=== PATIENT | male | born 1990 | race Caucasian/White ===

== ENCOUNTER 2019-10-05 06:41 | Emergency (ER) | payer BC ==
[2019-10-05 06:48] VITALS: TEMP 97.5
[2019-10-05] MEDS ORDERED: KETOROLAC 30 MG/ML 1 ML VIAL IVP STA (06:55)
[2019-10-05] MEDS ORDERED: MORPHINE SULFATE 4 MG/ML SYRINGE IV STA (06:55)
[2019-10-05] MEDS ORDERED: SODIUM CHLORIDE 0.9% 1,000 ML IV STA ×2 (06:55)
[2019-10-05] MEDS ORDERED: ONDANSETRON 4 MG/2 ML VIAL IVP STA (06:55)
--- NOTE | 2019-10-05 06:56 | ED ---
Abdominal Pain HPI - General Chief Complaint: Abdominal Pain Stated Complaint: Abdominal pain Time Seen by Provider: 10/05/19 06:50 Source: patient, RN notes reviewed, old records reviewed Mode of arrival: wheelchair Limitations: no limitations - History of Present Illness Initial Comments: 29-year-old male presents today for evaluation for onset of right-sided abdominal pain sudden onset at 6 AM. Patient also reports she's had some minor dysuria over the past few days. He reports he's noticed that his urine is darker. He denies any significant impact pain. He reports it's more towards the right lower quadrant. Patient states that he feels nauseous. He denies any surgical history. - Related Data Previous Rx's Medication Instructions Recorded Cephalexin [Keflex] 500 mg PO Q8HR #21 cap 10/05/19 Ciprofloxacin HCl [Cipro] 500 mg PO BID 3 Days #6 tab 10/05/19 HYDROcodone/APAP 5-325MG [Solomon 1 tab PO Q6HR PRN 3 Days #12 tab 10/05/19 5-325] Ketorolac [Toradol] 10 mg PO Q6HR #12 tab 10/05/19 Ondansetron [Zofran ODT] 4 mg PO Q8HR PRN #12 tab 10/05/19 Tamsulosin [Flomax] 0.4 mg PO DAILY #7 cap 10/05/19 Allergies Allergy/AdvReac Type Severity Reaction Status Date / Time Sulfa (Sulfonamide Allergy Swelling Verified 10/05/19 06:47 Antibiotics) Review of Systems ROS Statement: Those systems with pertinent positive or pertinent negative responses have been documented in the HPI. ROS Other: All systems not noted in ROS Statement are negative. Past Medical History Past Medical History: No Reported History History of Any Multi-Drug Resistant Organisms: None Reported Past Surgical History: Tonsillectomy Past Psychological History: No Psychological Hx Reported Smoking Status: Current every day smoker Past Alcohol Use History: Occasional Past Drug Use History: Marijuana General Exam - General Exam Comments Initial Comments: 29-year-old male present by her discomfort. Limitations: no limitations General appearance: alert, in no apparent distress Head exam: Present: atraumatic, normocephalic, normal inspection Eye exam: Present: normal appearance, PERRL, EOMI. Absent: scleral icterus, conjunctival injection, periorbital swelling ENT exam: Present: normal exam, mucous membranes moist Neck exam: Present: normal inspection. Absent: tenderness, meningismus, lymphadenopathy Respiratory exam: Present: normal lung sounds bilaterally. Absent: respiratory distress, wheezes, rales, rhonchi, stridor Cardiovascular Exam: Present: regular rate, normal rhythm, normal heart sounds. Absent: systolic murmur, diastolic murmur, rubs, gallop, clicks GI/Abdominal exam: Present: soft, tenderness (RLQ tenderness), normal bowel sounds. Absent: distended, guarding, rebound, rigid Extremities exam: Present: normal inspection, full ROM, normal capillary refill. Absent: tenderness, pedal edema, joint swelling, calf tenderness Back exam: Present: normal inspection Neurological exam: Present: alert, oriented X3, CN II-XII intact Psychiatric exam: Present: normal affect, normal mood Skin exam: Present: warm, dry, intact, normal color. Absent: rash Course Vital Signs 10/05/19 10/05/19 06:44 08:00 Temperature 97.5 F L Pulse Rate 85 74 Respiratory 16 20 Rate Blood Pressure 130/75 125/70 O2 Sat by Pulse 100 97 Oximetry Medical Decision Making - Medical Decision Making 29-year-old male presents today for sudden onset of right-sided lower abdominal pain also with this for the past 2 days. Patient's urinalysis is significant for hematuria, there was bacteria. Urine culture be completed. Patient given 1 g Rocephin IV push. Patient labwork, CBC and CMP are unremarkable. Computed tomography scan of pelvis was completed without contrast. Evidence of a 3 mm UVJ stone. Patient was given Flomax. Discussed Patient needs to rest remain hydrated and he should pass a kidney stone without any difficulty. Discussed Patient follow-up with his primary care doctor as well as urology. Discharged with prescription for pain medication Zofran and antibiotic. - Lab Data Result diagrams: 10/05/19 06:51 10/05/19 06:51 Lab Results 10/05/19 10/05/19 10/05/19 Range/Units 06:51 06:51 06:51 WBC 9.9 (3.8-10.6) k/uL RBC 4.89 (4.30-5.90) m/uL Hgb 15.3 (13.0-17.5) gm/dL Hct 45.4 (39.0-53.0) % MCV 92.9 (80.0-100.0) fL MCH 31.2 (25.0-35.0) pg MCHC 33.6 (31.0-37.0) g/dL RDW 12.3 (11.5-15.5) % Plt Count 305 (150-450) k/uL Neutrophils % 51 % Lymphocytes % 37 % Monocytes % 5 % Eosinophils % 5 % Basophils % 1 % Neutrophils # 5.0 (1.3-7.7) k/uL Lymphocytes # 3.6 (1.0-4.8) k/uL Monocytes # 0.5 (0-1.0) k/uL Eosinophils # 0.5 (0-0.7) k/uL Basophils # 0.1 (0-0.2) k/uL Sodium 142 (137-145) mmol/L Potassium 3.7 (3.5-5.1) mmol/L Chloride 106 (98-107) mmol/L Carbon Dioxide 22 (22-30) mmol/L Anion Gap 14 mmol/L BUN 15 (9-20) mg/dL Creatinine 0.94 (0.66-1.25) mg/dL Est GFR (CKD-EPI)AfAm >90 (>60 ml/min/1.73 sqM) Est GFR (CKD-EPI)NonAf >90 (>60 ml/min/1.73 sqM) Glucose 147 H (74-99) mg/dL Calcium 10.2 (8.4-10.2) mg/dL Total Bilirubin 1.1 (0.2-1.3) mg/dL AST 27 (17-59) U/L ALT 22 (4-49) U/L Alkaline Phosphatase 68 (38-126) U/L Total Protein 8.0 (6.3-8.2) g/dL Albumin 5.0 (3.5-5.0) g/dL Amylase 61 (30-110) U/L Lipase 81 (23-300) U/L Urine Color Light Red Urine Appearance Clear (Clear) Urine pH 6.0 (5.0-8.0) Ur Specific [place] 1.025 (1.001-1.035) Urine Protein 1+ H (Negative) Urine Glucose (UA) Negative (Negative) Urine Ketones Trace H (Negative) Urine Blood Large H (Negative) Urine Nitrite Negative (Negative) Urine Bilirubin Negative (Negative) Urine Urobilinogen <2.0 (<2.0) mg/dL Ur Leukocyte Esterase Negative (Negative) Urine RBC >182 H (0-5) /hpf Urine WBC 3 (0-5) /hpf Ur Squamous Epith Cells <1 (0-4) /hpf Urine Bacteria Rare H (None) /hpf Urine Mucus Moderate H (None) /hpf - Radiology Data Radiology results: report reviewed CT shows a mild right hydroureteronephrosis secondary to an obstructing 3 mm calculus at the right ureterovesicular junction. 2 small macular characterize punctate 3 mm hepatic lesion with suspected sigmoid diverticula. Disposition Clinical Impression: Right ureteral stone Disposition: HOME SELF-CARE Condition: Good Instructions (If sedation given, give patient instructions): Ureteral Stones (ED) Additional Instructions: Patient advised to rest, remain hydrated. Take the medications as prescribed. Follow-up with her primary care doctor as well as urology. Prescriptions: Ciprofloxacin HCl [Cipro] 500 mg PO BID 3 Days #6 tab Tamsulosin [Flomax] 0.4 mg PO DAILY #7 cap Cephalexin [Keflex] 500 mg PO Q8HR #21 cap HYDROcodone/APAP 5-325MG [Solomon 5-325] 1 tab PO Q6HR PRN 3 Days #12 tab PRN Reason: Pain Ketorolac [Toradol] 10 mg PO Q6HR #12 tab Ondansetron [Zofran ODT] 4 mg PO Q8HR PRN #12 tab PRN Reason: Nausea Is patient prescribed a controlled substance at d/c from ED?: Yes If prescribed controlled substance>3 days was MAPS reviewed?: Prescribed <3 Days If opioid is for acute pain is fill amount 7 days or less?: Yes If Rx opioid, was Start Talking consent form obtained?: Yes Referrals: None,Stated [REFERRING] - 1-2 days David Chau MD [STAFF PHYSICIAN] - 1-2 days Time of Disposition: 08:13
[2019-10-05 07:04] LABS: Basophils # (A) 0.1 k/uL (0-0.2); Basophils % (A) 1 %; Eosinophils # (A) 0.5 k/uL (0-0.7); Eosinophils % (A) 5 %; HCT 45.4 % (39.0-53.0); HGB 15.3 gm/dL (13.0-17.5); Lymphocytes # (A) 3.6 k/uL (1.0-4.8); Lymphocytes % (A) 37 %; MCH 31.2 pg (25.0-35.0); MCHC 33.6 g/dL (31.0-37.0); MCV 92.9 fL (80.0-100.0); Mean Platelet Volume 7.8; Monocytes # (A) 0.5 k/uL (0-1.0); Monocytes % (A) 5 %; Neutrophils % (A) 51 %; Platelet Count 305 k/uL (150-450); RBC 4.89 m/uL (4.30-5.90); RDW 12.3 % (11.5-15.5); WBC 9.9 k/uL (3.8-10.6)
[2019-10-05 07:11] LABS: Appearance,Urine Clear (Clear); Bacteria,Urine Rare /hpf; Bilirubin,Urine Negative (Negative); Blood,Urine Large (Negative); Color,Urine Light Red; Glucose,Urine (UA) Negative (Negative); Ketones,Urine Trace (Negative); Leukocyte Esterase,Urine Negative (Negative); Mucus,Urine Moderate /hpf; Nitrite,Urine Negative (Negative); Protein,Urine 1+ (Negative); RBC,Urine >182 /hpf (0-5); Specific Gravity,Urine 1.025 (1.001-1.035); Squamous Epithelial Cell,Urine <1 /hpf (0-4); Urobilinogen,Urine <2.0 mg/dL (<2.0); WBC,Urine 3 /hpf (0-5)
[2019-10-05 07:16] LABS: ALT 22 U/L (4-49); AST 27 U/L (17-59); African American GFR (CKD) >90 (>60 ml/min/1.73 sqM); Alkaline Phosphatase 68 U/L (38-126); Amylase 61 U/L (30-110); Anion Gap 14 mmol/L; Blood Urea Nitrogen 15 mg/dL (9-20); Calcium 10.2 mg/dL (8.4-10.2); Carbon Dioxide 22 mmol/L (22-30); Chloride 106 mmol/L (98-107); Glucose 147 mg/dL (74-99); Non-African American GFR(CKD) >90 (>60 ml/min/1.73 sqM); Potassium 3.7 mmol/L (3.5-5.1); Sodium 142 mmol/L (137-145); Total Bilirubin 1.1 mg/dL (0.2-1.3)
--- NOTE | 2019-10-05 08:03 | CT ---
EXAMINATION TYPE: CT abdomen pelvis wo con DATE OF EXAM: 10/05/2019 COMPARISON: None HISTORY: Rt flank pain, microscopic hematuria CT DLP: 522.6 mGycm Automated exposure control for dose reduction was used. TECHNIQUE: Helical acquisition of images was performed from the lung bases through the pelvis. FINDINGS: LUNG BASES: No significant abnormality is appreciated. LIVER/GB: 3 mm too small to accurately characterize hepatic lesion is seen near the dome of the diaph ragm in the right lobe of the liver on image 17. Remainder of the unenhanced liver is unremarkable. N o cholelithiasis on CT. PANCREAS: No significant abnormality is seen. SPLEEN: No significant abnormality is seen. ADRENALS: No significant abnormality is seen. KIDNEYS: There is a 3 mm calculus at the right ureterovesicular junction creating mild right hydroure teronephrosis. No additional nonobstructing calculi within either kidney. No left-sided hydronephrosi s. FREE AIR: No free air is visualized URINARY BLADDER: No significant abnormality is seen. ADENOPATHY: No greater than 1 cm short axis lymph node in the abdomen or pelvis. OSSEOUS STRUCTURES: Schmorl's nodes and mild superior endplate deformities are seen of the thoracolu mbar junction. Transitional vertebrae is seen at L5. BOWEL: Although the sigmoid colon is incompletely distended there is the appearance of few small div erticula without pericolonic fat stranding. No dilated large or small bowel seen. Appendix is air-lizet led and within normal limits. OTHER: Abdominal aorta is of normal course and caliber. IMPRESSION: 1. Mild right hydroureteronephrosis secondary to an obstructing 3 mm calculus at the right ureteroves icular junction. 2. Too small to accurately characterize punctate 3 mm hepatic lesion and few suspected sigmoid divert icula.
[2019-10-05] MEDS ORDERED: TAMSULOSIN 0.4 MG CAP.ER.24H PO STA (08:05)
[2019-10-05] MEDS ORDERED: cefTRIAXone IN SWFI 1,000 MG/10 ML SYRINGE IVP STA (08:12)
[2019-10-05 08:35] VITALS: BP 132/71; PULSE 76; RESP 16
== END 2019-10-05 08:33 | disposition home or self-care (01) ==
LOC: EC 06:41
DX: N20.1 Calculus of ureter (principal); F17.200 Nicotine dependence, unspecified, uncomplicated; Z88.2 Allergy status to sulfonamides
CPT/HCPCS: 36415; 80053; 82150; 83690; 85025; 81001; 74176; 99285; 96374; 96375 ×3; 96361 ×2; J2270; J2405; J0696; J1885